=== PATIENT | male | born 1950 | race Caucasian/White ===

== ENCOUNTER 2019-03-31 12:46 | Emergency (ER) | payer MEDICARE, OTHER, SELFPAY | END 2019-03-31 14:40 | disposition short-term general hospital (02) | PROVIDERS: Emergency Provider General Practice; PCP Internal Medicine; Visit Provider General Practice | DX: S06.340A Traumatic hemorrhage of right cerebrum without loss of consciousness, initial encounter (principal); S01.01XA Laceration without foreign body of scalp, initial encounter; K21.9 Gastro-esophageal reflux disease without esophagitis; Z87.442 Personal history of urinary calculi; G62.9 Polyneuropathy, unspecified; M17.11 Unilateral primary osteoarthritis, right knee; M19.041 Primary osteoarthritis, right hand; M19.042 Primary osteoarthritis, left hand; Z96.652 Presence of left artificial knee joint; Z85.828 Personal history of other malignant neoplasm of skin; M47.812 Spondylosis without myelopathy or radiculopathy, cervical region; V68.5XXA Driver of heavy transport vehicle injured in noncollision transport accident in traffic accident, initial encounter | CPT/HCPCS: 12002; 70450; 72125; 99291; L0140 ==

== ENCOUNTER 2020-01-04 01:04 | Outpatient (CLI) | payer MEDICARE, OTHER, SELFPAY ==
[2020-01-04 19:08] LABS: SARS-CoV-2 RNA PCR Negative
== END 2020-01-04 01:05 | disposition home or self-care (01) ==
LOC: ANHCOVIDDT 01:04
PROVIDERS: Visit Provider Internal Medicine Gastroenterology
DX: Z01.812 Encounter for preprocedural laboratory examination (principal); Z11.59 Encounter for screening for other viral diseases
CPT/HCPCS: 87635; C9803; U0003

== ENCOUNTER 2020-01-06 00:40 | Day surgery (SDC) | payer MEDICARE, OTHER, SELFPAY ==
[2019-12-30 13:35] VITALS: BMI 41.8
[2020-01-06 06:50] VITALS: BP 106/79; PULSE 63; RESP 18; TEMP 36.7; O2SAT 97
[2020-01-06] MEDS: LACTATED RINGERS 1,000 ML 150 ML IV CONT (07:12)
--- NOTE | 2020-01-06 07:34 | WPDANESEPPF ---
Anes - Initial Pre Proc Eval Procedure: Operation Date: 01/06/20 08:00 Proposed Procedures p Screening Colonoscopy - Vel Rhodes DO Date/Time: 01/06/20 07:34 Surgeon: Vel Rhodes DO Pre Op Diagnosis: Neoplasm Screening Patient Data Age: 69 Gender: M Height: 5 ft 9 in Weight: 93.1 kg Last Vital Signs Temp 36.7 C 01/06/20 06:50 Pulse 63 01/06/20 06:50 Resp 18 01/06/20 06:50 BP 106/79 01/06/20 06:50 Pulse Ox 97 01/06/20 06:50 Allergies Allergy/AdvReac Type Severity Reaction Status Date / Time No Known Allergies Allergy Verified 01/06/20 07:00 Home Medications Medication Instructions Recorded Confirmed Type dexlansoprazole [Dexilant] 60 mg PO DAILY 12/30/19 01/06/20 History Patient hx anesthesia problems: none Family hx anesthesia problems: none PMFSH Past Medical History Medical History GERD (gastroesophageal reflux disease) Family History Family History Sibling Patient's sister is in good health Mother Family history of Alzheimer's disease Father Family history of congestive heart failure Social History Social History Smoking status: Never smoker Alcohol intake: current Anes - Eval Final PreProcedure Day of Procedure 01/06/20 07:34 Patient weight: overweight Heart: regular rate and rhythm Lungs: clear to auscultation Airway: Mallampati scale class II Neurological: alert and oriented Last oral intake: >/= 8 hours ASA classification: II Emergent: no Anesthetic plan: proceed Anesthesia type and monitoring: general GIVS and standard monitoring Informed Consent: The patient's anesthetic plan and its attendant risks and benefits were discussed with the patient/family/POA. Questions were solicited and answers provided to the satisfaction of the patient/family/POA.
--- NOTE | 2020-01-06 08:09 | PM.IMHP ---
H&P: HPI History of Present Illness Chief complaint: Neoplasm Screening Narrative: Reason for visit is colonoscopy. Very pleasant gentleman seen at the request of the primary physician. Impression: Screening colonoscopy. GERD. BPH. Brain tumor /meningioma status post craniotomy. Seizure disorder. EGD. Recommendation: Colonoscopy. EGD will be scheduled. History: This patient has a negative GI review systems. Physical examination: General: very pleasant patient in no acute distress. HEENT: Head was normocephalic sclerae is clear mouth without masses neck was supple. Heart: Rate rhythm regular without S3 or S4. Lungs: CTA. Abdomen: Soft with no guarding or rigidity. Bowel sounds were active. Neurologic: Cranial nerves 2 through 12 intact. No focal defects. No clonus. Musculoskeletal system: Revealed no joint tenderness or swelling no muscle atrophy. Extremities: Reveal no significant edema. Skin: Warm and dry with normal turgor. Mental status: intact. Patient is alert and oriented. Review of Systems Review of Systems: All systems reviewed & are unremarkable except as noted in HPI and below PMFSH Past Medical History Medical History GERD (gastroesophageal reflux disease) Family History Family History Sibling Patient's sister is in good health Mother Family history of Alzheimer's disease Father Family history of congestive heart failure Social History Social History Smoking status: Never smoker Alcohol intake: current Meds Home Medications and Allergies Home Medications Medication Instructions Recorded Confirmed Type dexlansoprazole [Dexilant] 60 mg PO DAILY 12/30/19 01/06/20 History Allergies Allergy/AdvReac Type Severity Reaction Status Date / Time No Known Allergies Allergy Verified 01/06/20 07:00 Vital Signs Vital Signs - 24 hr 01/06/20 06:50 Temperature 36.7 C Pulse Rate 63 Respiratory Rate 18 Blood Pressure 106/79 Pulse Oximetry 97
[2020-01-06 08:41] VITALS: BP 91/58; PULSE 51; RESP 12; O2SAT 94
[2020-01-06 08:51] VITALS: BP 127/85; PULSE 52; RESP 12; O2SAT 98
[2020-01-06 09:00] VITALS: BP 129/85; PULSE 52; RESP 14; O2SAT 99
== END 2020-01-06 09:25 | disposition home or self-care (01) ==
PROVIDERS: PCP Internal Medicine; Visit Provider Internal Medicine Gastroenterology
PROC: 0DJD8ZZ Inspection of Lower Intestinal Tract, Via Natural or Artificial Opening Endoscopic (ICD-10-PCS; CPT 45378; principal; 2020-01-06 08:00)
DX: Z12.11 Encounter for screening for malignant neoplasm of colon (principal); D12.8 Benign neoplasm of rectum; K21.9 Gastro-esophageal reflux disease without esophagitis; N40.0 Benign prostatic hyperplasia without lower urinary tract symptoms; G40.909 Epilepsy, unspecified, not intractable, without status epilepticus
CPT/HCPCS: 45380; 88305; J2704; J7120

== ENCOUNTER → 2021-01-30 12:35 | Outpatient (CLI) | payer MEDICARE, OTHER, SELFPAY ==
--- NOTE | ~2021-01-30 | MR_ITS ---
EXAMINATION: MR hip RT wo con DATE: 01/30/2021 14:09 INDICATION: Right hip pain TECHNIQUE: Magnetic resonance imaging (MRI) of the right hip was performed without intravenous contr ast. Sequences included full-field axial PD-weighted FS FSE and T1-weighted FSE, coronal of the pelvi s with PD-weighted FS FSE, small field of view of the right hip with axial PD-weighted FS FSE, sagit rolando PD-weighted FS FSE and coronal PD weighted FS FSE. Additional radial T1-weighted FGR oriented ort hogonal to the acetabular rim were obtained for evaluation of the labrum. COMPARISON: None FINDINGS: Bones/labrum/cartilage: Alignment is normal. No fracture, avascular necrosis or pathologic marrow replacing process. Right h ip osteoarthritis with partial thickness cartilage loss resulting in mild nonuniform joint space narr owing. Small region of high-grade chondromalacia with mild subarticular cystic change at the superola teral rim of the acetabulum. There is diffuse tearing of the right acetabular labrum with macerated a ppearance and associated para labral cysts along the superolateral rim of the acetabulum. Similar fin dings suggested at the contralateral left hip which is not diagnostically evaluated on the larger fie ld of view images. Moderate lumbar spondylosis. Fluid: Symmetric physiologic amount of fluid within both hip joints. Small amount of fluid overlying the frank ateral greater trochanters consistent with mild trochanteric bursitis. There is also mild left ischia l bursitis. Soft tissues: Normal and symmetric muscle bulk and signal in the pelvis and visualized proximal thighs. The iliopso as, gluteal and proximal hamstring tendons are normal. Limited evaluation of visceral organs of the p clarence is unremarkable including a normal appendix. No pathologically enlarged pelvic/inguinal lympha denopathy. IMPRESSION: 1. Mild right hip osteoarthritis with diffuse labral tear. 2. Mild left ischial bursitis and mild bilateral trochanteric bursitis. 3. Moderate lumbar spondylosis. Reviewed, dictated and finalized at location A.
--- NOTE | ~2021-01-30 | MR_ITS ---
EXAMINATION: MR shoulder LT wo con DATE: 01/30/2021 13:43 INDICATION: Left shoulder pain TECHNIQUE: Magnetic resonance imaging (MRI) of the left shoulder was performed without intravenous co ntrast. Sequences included axial PD-weighted FS FSE, coronal oblique PD-weighted FS FSE, coronal obli que T2-weighted FS FSE, sagittal PD-weighted FS FSE, and sagittal T1-weighted SE. COMPARISON: 06/14/2010 FINDINGS: Coracoacromial arch: The acromion undersurface is flat in morphology (type I) with change of interval acromioplasty. Also is been prior distal left clavicle resection. Rotator cuff: There are foci of susceptibility artifact along the supraspinatus tendon and multiple anchor tracks a long the superior and middle facets of the greater tuberosity consistent with prior rotator cuff repa ir. There is a recurrent full-thickness tear involving the posterior supraspinatus and anterior infra spinatus tendons which measures approximately 2.5 cm in maximal AP dimension and 2.5 cm medial to lat eral. The more anterior portion of the supraspinatus and posterior portion of the infraspinatus tendo n are both attenuated with partial-thickness articular sided tears. There is moderate fatty atrophy o f both muscle bellies. The teres minor tendon is normal. The subscapularis tendon is also attenuated with tear involving the cephalad two thirds of the lesser tuberosity footplate. . The tendon remains tethered laterally by the contiguous intact transverse humeral ligament as well as the caudal third o f the tendon. Mild fatty atrophy of the subscapularis muscle belly. Biceps tendon, glenoid labrum and glenohumeral cartilage: Bicipital tenodesis which is anchored at the caudal aspect of the intertubercular groove. Diffuse tea r of the glenoid labrum sparing the anterosuperior labrum which extends over a normal sublingual fora men. Mild to moderate glenohumeral osteoarthritis with partial thickness cartilage loss involving gre ater than 50% the cartilage thickness at the cephalad third of the glenoid and with subarticular cyst ic change along the inferior rim of the glenoid. Additional partial thickness cartilage loss involvin g greater than 50% the cartilage thickness at the apex and posterosuperior aspect of the humeral head . Small marginal osteophytes along the inferomedial aspect of the humeral head. Fluid: Small glenohumeral joint effusion with moderate amount of fluid in the deep subscapular recess. No lo ose osteochondral bodies. Bones: There is mild cephalad subluxation of the humeral head with narrowing of the subacromial space with 2 mm separation between the cartilage at the apex of the humeral head and the undersurface of the acro mion no fracture or pathologic marrow replacing process. IMPRESSION: 1. Changes of prior rotator cuff repair with recurrent moderate sized full-thickness tear of the supr aspinatus and infraspinatus tendons and moderate fatty atrophy of the muscle bellies. 2. Additional partial tear involving the cephalad two thirds of the lesser tuberosity footplate of th e subscapularis tendon with mild muscular fatty atrophy. 3. Mild to moderate glenohumeral osteoarthritis with diffuse tearing of the glenoid labrum. 4. Intact bicipital tenodesis. 5. Status post acromioplasty and distal left clavicle resection. Reviewed, dictated and finalized at location A. IMPRESSION: 1. Changes of prior rotator cuff repair with recurrent moderate sized full-thic kness tear of the supraspinatus and infraspinatus tendons and moderate fatty at rophy of the muscle bellies. 2. Additional partial tear involving the cephalad two thirds of the lesser tube rosity footplate of the subscapularis tendon with mild muscular fatty atrophy. 3. Mild to moderate glenohumeral osteoa
== END ==
PROVIDERS: PCP Internal Medicine; Visit Provider Internal Medicine
DX: M19.012 Primary osteoarthritis, left shoulder (principal); M16.11 Unilateral primary osteoarthritis, right hip; M47.896 Other spondylosis, lumbar region; M70.72 Other bursitis of hip, left hip
CPT/HCPCS: 73221; 73721

== ENCOUNTER → 2021-02-10 11:46 | Outpatient (CLI) | payer MEDICARE, OTHER, SELFPAY ==
--- NOTE | ~2021-02-10 | MR_ITS ---
EXAMINATION: MR lumbar spine wo con DATE: 02/10/2021 12:45 INDICATION: Low back pain with radiculopathy. TECHNIQUE: Magnetic resonance imaging (MRI) of the lumbar spine was performed without intravenous con trast. Sequences included sagittal T2-weighted FSE, sagittal T2-weighted FS FSE, sagittal T1-weighted FSE, and axial T2-weighted FSE. COMPARISON: None FINDINGS: Bone alignment is normal. There are Schmorl's nodes at most levels. There is mild chronic a nterior wedging of T11-L1 vertebral bodies. There is mildly decreased disc height at L1-L2, L2-L3, L3 -L4, and L4-L5. The distal spinal cord signal intensity is normal. The conus medullaris is at L1. The re is a 2.3 cm cyst in left kidney. The following disc levels are specifically discussed: L1-L2: The disc is bulging. There is moderate bilateral facet joint osteoarthritis. There is mild frank ateral neural foraminal stenosis. There is mild central canal stenosis. L2-L3: The disc is bulging and has an annular fissure. There is severe bilateral facet joint osteoart hritis. There is mild bilateral neural foraminal stenosis. There is mild central canal stenosis. L3-L4: The disc is bulging and has an annular fissure. There is moderate bilateral facet joint osteoa rthritis. There is moderate bilateral neural foraminal stenosis. There is mild central canal stenosis . L4-L5: The disc is bulging and has an annular fissure. There is severe bilateral facet joint osteoart hritis. There is moderate bilateral neural foraminal stenosis. There is mild central canal stenosis. L5-S1: The disc does not extend beyond the endplate margin. There is severe bilateral facet joint ost eoarthritis. There is no neural foraminal stenosis. There is no central canal stenosis. IMPRESSION: 1. Moderate lumbar spondylosis. Reviewed, dictated and finalized at location A.
== END ==
PROVIDERS: Visit Provider Internal Medicine
DX: M47.26 Other spondylosis with radiculopathy, lumbar region (principal)
CPT/HCPCS: 72148